=== PATIENT | female | born 1965 | race Caucasian/White ===

== ENCOUNTER 2016-07-07 07:45 | Emergency (ER) | payer OTHER ==
[2016-07-07 07:45] VITALS: BMI 22.3
[2016-07-07] MEDS ORDERED: Naproxen 550 mg Tab PO STA (08:16)
[2016-07-07] MEDS ORDERED: Naproxen 550 mg Tab PO ONE (08:31)
--- NOTE | 2016-07-07 08:53 | C.PDOC ---
History Of Present Illness 50 y/o female presents to the ED with complains of bilateral neck pain which radiates up to her head for the past 2 weeks. Pain worsens with movement of the head/neck. She denies falls/injury, fever, rash, headache, back pain. She states she took tylenol once yesterday without relief. Time Seen by Provider: 07/07/16 08:01 Chief Complaint (Nursing): Upper Extremity Problem/Injury History Per: Patient History/Exam Limitations: no limitations Onset/Duration Of Symptoms: Days Current Symptoms Are (Timing): Still Present Quality: "Pain" Severity: Moderate Exacerbating Factor(s): Movement Past Medical History Reviewed: Historical Data, Nursing Documentation, Vital Signs Vital Signs: Last Vital Signs Temp 98.0 F 07/07/16 09:35 Pulse 71 07/07/16 09:35 Resp 18 07/07/16 09:35 BP 125/77 07/07/16 09:35 Pulse Ox 97 07/07/16 09:35 - Medical History PMH: Gall Bladder Disease (cholelithiasis) Surgical History: Cholecystectomy (stones removed) - [facility] Procedures RESECTION OF GALLBLADDER, PERCUTANEOUS ENDOSCOPIC APPROACH (03/19/15) Family History: States: No Known Family Hx - Social History Hx Tobacco Use: No Hx Alcohol Use: No Hx Substance Use: No - Immunization History Hx Tetanus Toxoid Vaccination: No Hx Influenza Vaccination: Yes Hx Pneumococcal Vaccination: Yes Review Of Systems Except As Marked, All Systems Reviewed And Found Negative. Constitutional: Negative for: Fever, Chills Cardiovascular: Positive for: Palpitations. Negative for: Chest Pain Respiratory: Negative for: Cough, Shortness of Breath Musculoskeletal: Positive for: Neck Pain (radiating to head). Negative for: Back Pain Skin: Negative for: Rash Neurological: Negative for: Headache Physical Exam - Physical Exam Appears: Well, Non-toxic, No Acute Distress Skin: Warm, Dry, No Rash Head: Atraumatic, Normacephalic Eye(s): bilateral: Normal Inspection, PERRL, EOMI Oral Mucosa: Moist Neck: Normal ROM, No Midline Cervical Tenderness, Paracervical Tenderness ( bilateral paracervical tenderness over trapezius muscles), No Step Off Deformity , Supple, Other (No swelling or erythema) Chest: Symmetrical Cardiovascular: Rhythm Regular, No Murmur Respiratory: Normal Breath Sounds, No Rales, No Rhonchi, No Wheezing Extremity: Bilateral: Atraumatic Neurological/Psych: Oriented x3 ED Course And Treatment O2 Sat by Pulse Oximetry: 100 (on room air) Pulse Ox Interpretation: Normal Progress Note: Plan: Patient given PO Naprosyn and Flexeril. Reevaluation Time: 09:15 Reassessment Condition: Improved (On reassessment, patient reports her symptoms have improved and she feels better. Patient given Rxs for Naprosyn and Flexeril , and instructed to follow up with PMD/clinic in 1-2 days. She understands she should return to ED if symptoms worsen.) Disposition Counseled Patient/Family Regarding: Diagnosis, Need For Followup, Rx Given - Disposition Referrals: [facility] [Outside] Disposition: HOME/ ROUTINE Disposition Time: 09:15 Condition: STABLE Additional Instructions: SEGUIMIENTO CON ESPINOSA DOCTOR / CLNICA EN 1-2 FINK USE LOS MEDICAMENTOS QUE YENI NECESARIOS DEVUELVA A LA JOSÉ MIGUEL DE EMERGENCIA SI LOS SNTOMAS EMPEORARAN Prescriptions: Cyclobenzaprine [Cyclobenzaprine HCl] 10 mg PO BID PRN #12 tab PRN Reason: pain/muscle Naproxen [Naprosyn Tab] 375 mg PO BID PRN #20 tab PRN Reason: pain Instructions: Muscle Spasm (ED) Print Language: BELIZEAN - POA Present On Arrival: None - Clinical Impression Clinical Impression: Muscle spasms of neck - Scribe Statement The provider has reviewed the documentation as recorded by the Mallorie Nunes Provider Attestation: All medical record entries made by the Mallorie were at my direction and personally dictated by me. I have reviewed the chart and agree that the record accurately reflects my personal performance of the history, physical exam, medical decision making, and the department course for this patient. I have also personally directed, reviewed, and agree with the discharge instructions and disposition.
[2016-07-07 09:36] VITALS: BP 125/77; PULSE 71; RESP 18; TEMP 98
[2016-07-18 09:01] VITALS: O2SAT 100
== END 2016-07-07 09:36 | disposition home or self-care (01) ==
LOC: C.ER 07:45
DX: M62.838 Other muscle spasm (principal)

== ENCOUNTER 2016-08-20 09:10 | Emergency (ER) | payer OTHER ==
[2016-08-20 09:14] VITALS: BMI 26.4
[2016-08-20 09:17] VITALS: RESP 18
[2016-08-20] MEDS ORDERED: Sodium Chloride 0.9% 1,000 ML IV ONE (09:44)
--- NOTE | 2016-08-20 10:15 | C.PDOC ---
History Of Present Illness 51 y/o female with PMHx of Vertigo presents to ED with complaints of dizziness and Nausea/Vomiting/Diarrhea for a "few days". Patient took medication for vertigo this morning but states she still feels dizzy. Patient reports 2 bowel movements and currently still nauseous. PSHx of gall bladder removal. No other complaints at this time Time Seen by Provider: 08/20/16 09:19 Chief Complaint (Nursing): Dizziness/Lightheaded History Per: Patient History/Exam Limitations: no limitations Onset/Duration Of Symptoms: Days Current Symptoms Are (Timing): Still Present Associated Symptoms Preceding Syncopal Episode: Vertigo Possible Causative Factor(s): Vertigo Fall Associated With With Symptoms: No Additional History Per: Family Past Medical History Reviewed: Historical Data, Nursing Documentation, Vital Signs Vital Signs: Last Vital Signs Temp 97.9 F 08/20/16 11:47 Pulse 76 08/20/16 11:47 Resp 18 08/20/16 11:47 BP 110/71 08/20/16 11:47 Pulse Ox 97 08/20/16 16:36 - Medical History PMH: Gall Bladder Disease (cholelithiasis) Other PMH: vertigo Surgical History: Cholecystectomy (stones removed) - [facility] Procedures RESECTION OF GALLBLADDER, PERCUTANEOUS ENDOSCOPIC APPROACH (03/19/15) Family History: States: Unknown Family Hx - Social History Hx Tobacco Use: No Hx Alcohol Use: No Hx Substance Use: No - Immunization History Hx Tetanus Toxoid Vaccination: Yes Hx Influenza Vaccination: Yes Hx Pneumococcal Vaccination: Yes Review Of Systems Except As Marked, All Systems Reviewed And Found Negative. Constitutional: Negative for: Fever, Chills Respiratory: Negative for: Shortness of Breath Gastrointestinal: Positive for: Nausea, Vomiting, Diarrhea. Negative for: Hematemesis Musculoskeletal: Positive for: Neck Pain Neurological: Positive for: Dizziness. Negative for: Headache Physical Exam - Physical Exam Appears: Non-toxic, No Acute Distress Skin: Normal Color, Warm Head: Atraumatic, Normacephalic Oral Mucosa: Moist Throat: Normal Neck: Normal ROM, No Midline Cervical Tenderness Cardiovascular: Rhythm Regular Respiratory: No Rales, No Rhonchi, No Wheezing Gastrointestinal/Abdominal: Normal Exam, Soft, No Tenderness Extremity: Normal ROM Neurological/Psych: Oriented x3, Normal Speech, Normal Cognition Gait: Steady ED Course And Treatment - Laboratory Results Result Diagrams: 08/20/16 10:19 08/20/16 10:19 Lab Interpretation: Normal O2 Sat by Pulse Oximetry: 97 (Room air ) Pulse Ox Interpretation: Normal Progress Note: Treated with IVF NSS and reglan 10 mg IV. On re-evaluation lungs clear, abdomen soft. Treated with macrobid 100 mg PO Reassessment Condition: Improved Disposition Counseled Patient/Family Regarding: Studies Performed, Diagnosis, Need For Followup, Rx Given - Disposition Referrals: [facility] [Outside] [facility] [Outside] Disposition: HOME/ ROUTINE Disposition Time: 11:20 Condition: STABLE Prescriptions: Naproxen [Naprosyn] 1 tab PO BID PRN #25 tab PRN Reason: Pain Nitrofurantoin Macrocrystals [Macrobid] 1 cap PO BID #14 cap Instructions: Urinary Tract Infection in Women (ED), Gastroenteritis (ED) Print Language: KAZAKH - POA Present On Arrival: None - Clinical Impression Clinical Impression: Dizziness, Muscle spasms of neck, Gastroenteritis, UTI (urinary tract infection ) - PA / FRONT OFFICE COORDINATOR / Resident Statement MD/DO has reviewed & agrees with the documentation as recorded. - Scribe Statement The provider has reviewed the documentation as recorded by the Mallorie Gutierrez All medical record entries made by the Mallorie were at my direction and personally dictated by me. I have reviewed the chart and agree that the record accurately reflects my personal performance of the history, physical exam, medical decision making, and the department course for this patient. I have also personally directed, reviewed, and agree with the discharge instructions and disposition.
[2016-08-20 10:24] LABS: BASO # 0.1 K/uL (0.0-0.2); BASO % 0.6 % (0.0-2.0); EOS # 0.1 K/uL (0.0-0.7); EOS % 0.9 % (0.0-4.0); HEMATOCRIT 36.5 % (34.0-47.0); LYMPH # 1.6 K/uL (1.0-4.3); LYMPH % 17.2 % (20.0-40.0); MEAN CELL VOLUME 88.9 fL (81.0-99.0); MEAN CORPUSCULAR HEMOGLOBIN 29.2 pg (27.0-31.0); MEAN CORPUSCULAR HGB CONC 32.9 g/dL (33.0-37.0); MEAN PLATELET VOLUME 7.6 fL (7.2-11.7); MONO # 0.5 K/uL (0.0-0.8); MONO % 5.2 % (0.0-10.0); RED CELL DISTRIBUTION WIDTH 13.7 % (11.5-14.5); WHITE BLOOD COUNT 9.1 K/uL (4.8-10.8)
[2016-08-20] MEDS ORDERED: Sodium Chloride 0.9% 1,000 ML ONE (10:27)
[2016-08-20 10:36] LABS: CHLORIDE 99 mmol/L (98-107)
[2016-08-20 10:37] LABS: POTASSIUM 4.2 mmol/L (3.6-5.2); SODIUM 137 mmol/L (132-148)
[2016-08-20 10:39] LABS: ALB/GLOB RATIO 1.6 (1.0-2.1); ALKALINE PHOSPHATASE 121 U/L (38-126); AST/SGOT 26 U/L (14-36); BILIRUBIN,TOTAL 0.7 mg/dL (0.2-1.3); BLOOD UREA NITROGEN 9 mg/dL (7-17); CARBON DIOXIDE 28 mmol/L (22-30); GFR AFRICAN-AMERICAN > 60; TOTAL PROTEIN 7.7 g/dL (6.3-8.3)
[2016-08-20 10:40] LABS: ALT/SGPT 28 U/L (9-52); CALCIUM 8.9 mg/dl (8.6-10.4); GLUCOSE,RANDOM 107 mg/dL (65-105)
[2016-08-20 10:51] LABS: RBC URINE 1 /hpf (0-3); URINE BILIRUBIN NEGATIVE (NEGATIVE); URINE BLOOD NEGATIVE (NEGATIVE); URINE COLOR Yellow (YELLOW); URINE GLUCOSE (UA) NORMAL (Normal); URINE KETONE NEGATIVE (NEGATIVE); URINE PROTEIN NEGATIVE (NEGATIVE); URINE UROBILINOGEN NORMAL mg/dL (0.2-1.0); WBC URINE 6 /hpf (0-5)
[2016-08-20 10:54] LABS: URINE LEUKOCYTE ESTERASE 1+ Leu/uL (Negative)
[2016-08-20 11:48] VITALS: BP 110/71; PULSE 76; TEMP 97.9
[2016-08-20 16:35] VITALS: O2SAT 97
--- NOTE | 2016-08-20 16:36 | C.PDOC ---
Time Seen by Provider: 08/20/16 09:19 Chief Complaint (Nursing): Dizziness/Lightheaded Past Medical History Vital Signs: Last Vital Signs Temp 97.9 F 08/20/16 11:47 Pulse 76 08/20/16 11:47 Resp 18 08/20/16 11:47 BP 110/71 08/20/16 11:47 Pulse Ox 97 08/20/16 16:35 - Medical History PMH: Gall Bladder Disease (cholelithiasis) Denies: Chronic Kidney Disease Other PMH: vertigo Surgical History: Cholecystectomy (stones removed) - [facility] Procedures RESECTION OF GALLBLADDER, PERCUTANEOUS ENDOSCOPIC APPROACH (03/19/15) Family History: States: Unknown Family Hx - Social History Hx Tobacco Use: No Hx Alcohol Use: No Hx Substance Use: No - Immunization History Hx Tetanus Toxoid Vaccination: Yes Hx Influenza Vaccination: Yes Hx Pneumococcal Vaccination: Yes ED Course And Treatment - Laboratory Results Result Diagrams: 08/20/16 10:19 08/20/16 10:19 O2 Sat by Pulse Oximetry: 97 (Room air ) Disposition - Disposition Referrals: [facility] [Outside] [facility] [Outside] Disposition: HOME/ ROUTINE Disposition Time: 12:30 Condition: STABLE Prescriptions: Naproxen [Naprosyn] 1 tab PO BID PRN #25 tab PRN Reason: Pain Nitrofurantoin Macrocrystals [Macrobid] 1 cap PO BID #14 cap Instructions: Urinary Tract Infection in Women (ED), Gastroenteritis (ED) Print Language: [place] ISLAND[place] - POA Present On Arrival: None - Clinical Impression Clinical Impression: Dizziness, Muscle spasms of neck, Gastroenteritis, UTI (urinary tract infection )
== END 2016-08-20 11:49 | disposition home or self-care (01) ==
LOC: C.ER 09:10
DX: K52.9 Noninfective gastroenteritis and colitis, unspecified (principal); N39.0 Urinary tract infection, site not specified; M62.838 Other muscle spasm
CPT/HCPCS: 80053; 81001; 83690; 85025; 96361; 96374; 96375; 99285; J2765; J7040